=== PATIENT | female | born 1980 | race Caucasian/White ===

== ENCOUNTER 2016-08-19 10:38 | Emergency (ER) | payer OTHER ==
[~2016-08-19] VITALS: Ht 167.6 cm; Wt 85.7 kg
[~2016-08-19 10:38] MED LIST: IBUPROFEN400 MG PO; OMEPRAZOLE20 MG PO; TUMS200 MG PO; TYLENOL325 MG PO
--- NOTE | 2016-09-17 10:25 | OR ---
[facility] [address], [place] [address] Signed DATE OF PROCEDURE: 08/12/16 PREOPERATIVE DIAGNOSIS Anemia (hematocrit 28), episodic rectal bleeding, and constipation. POSTOPERATIVE DIAGNOSIS: Colon cancer at 20 cm. PROCEDURE Colonoscopy with IV sedation (incomplete due to obstructing neoplasm). Biopsy and Endomark tattoo application at inferior aspect of neoplasm. ANESTHESIA: Intravenous sedation, Fentanyl 150 mcg, Versed 10 mg. INDICATION This 35-year-old white woman has been incarcerated at the [facility] for a number of months. She is referred by JESSICA Lee, of the [facility], having had rectal hemorrhage beginning on 08/04/16. She was evaluated in the emergency room at [facility] by Dr. Hdz and found to have janice blood within the rectal vault. She has had no pain with bowel movement. Examination in my office on August 04, 2016, showed no evidence of obvious hemorrhoidal disease or fissure. The patient has complained of constipation for quite some time which she says has actually decreased over time. Her mother has had malignant tumor of the ovary, but there is no known family history of colon cancer. She is admitted at this time to undergo colonoscopy despite her young age of 35 years to assess for polyps, neoplasm, colitis, or other findings. She understands the risks of bleeding, infection, and perforation related to colonoscopy and wishes to proceed. FINDINGS A nearly obstructing neoplasm was noted at 20 cm ( most inferior margin). Conventional colonoscope could not pass through the confines of the tumor though it was patent and open. It was ulcerated and friable. There was no doubt this was the cause of her constipation and to her rectal bleeding. There was no sign of significant hemorrhoidal disease. The rectum and rectosigmoid were free of any abnormality particularly. DESCRIPTION OF PROCEDURE The patient was brought to the endoscopy suite and placed in the lateral decubitus position, given intravenous sedation to the point slurred speech and nystagmus. A MiraLax based prep had been administered preoperatively. Full cardiopulmonary monitoring was undertaken. Digital rectal examination was normal. An Olympus video colonoscope was passed in the rectum and ma nipulated out of the rectum Electronically Signed By: MOIRA HANLEY MD 09/17/16 1025 PATIENT NAME: CHIDI WISE OPERATIVE REPORT DATE OF : 82 PHYSICIAN: MOIRA HANLEY MD REPORT #: [id number] REPORT IS CONFIDENTIAL AND NOT TO BE RELEASED WITHOUT AUTHORIZATION [facility] [address], [place] [address] Signed and to the rectosigmoid and the distal sigmoid where clearly noted was a nearly circumferential neoplasm. Various manipulations were used to pass by the tumor. It appeared relatively elongated. The scope could really not be passed through it. Various maneuvers were undertaken to pass the lesion so as to provide clearance of the more proximal colon but it simply was not able to be done. Consideration was made for use of a flexible upper endoscope, but under the circumstances deemed unadvisable. Multiple biopsies were taken of the neoplasm. Endomark tattoo dye was injected in the submucosal layer in the distal margin of the neoplasm though angulation deformity and so forth made it slightly challenging. The scope was withdrawn from the distal confines of the tumor which was at about 20 cm, and the remaining rectosigmoid and rectum appeared normal. Retroflex view was undertaken showing no worrisome hemorrhoidal disease and certainly no neoplastic or inflammatory lesions. The scope was straightened, withdrawn, and removed. The findings were discussed with the patient subsequently. CONCLUSION/DIAGNOSES Rectal bleeding, anemia, and constipation related to distal sigmoid colon cancer. PLAN Sigmoid resection would be appropriate. Typically , would do imaging studies in advance to assess for regional or metastatic disease. It is noted that the more proximal colon is not cleared from neoplastic process either due to the constricting nature of the lesion. I believe she would tolerate a low anterior resection well. Whether or not there is metastatic disease to regional lymph nodes is uncertain. She will return to the ongoing care of [facility] in the meantime. Issues related to her transfer to rehab center in the next few days will need to be reckoned with by [facility] personnel in the meantime. MD RODO Peterson/Mehnaz /[id number] cc: JESSICA Lee [facility] Moira Hdz, Electronically Signed By: MOIRA HANLEY MD 09/17/16 1025 PATIENT NAME: CHIDI WISE OPERATIVE REPORT DATE OF : 82 PHYSICIAN: MOIRA HANLEY MD REPORT #: [id number] REPORT IS CONFIDENTIAL AND NOT TO BE RELEASED WITHOUT AUTHORIZATION [address] [address] Signed MD Calderón Chata [facility] Electronically Signed By: MOIRA HANLEY MD 09/17/16 1025 PATIENT NAME: CHIDI WISE REAGAN OPERATIVE REPORT DATE OF : 82 PHYSICIAN: MOIRA HANLEY MD REPORT #: [id number] REPORT IS CONFIDENTIAL AND NOT TO BE RELEASED WITHOUT AUTHORIZATION
== END 2016-08-19 12:47 | disposition home or self-care (01) ==
LOC: ED 10:38
DX: K62.5 Hemorrhage of anus and rectum (principal); D64.9 Anemia, unspecified; K63.89 Other specified diseases of intestine; Z87.891 Personal history of nicotine dependence
CPT/HCPCS: 36415; 74022; 80053; 85025; 99283